=== PATIENT | female | born 1940 | race Caucasian/White ===

== ENCOUNTER 2017-08-02 17:38 | Emergency (ER) | payer MEDICARE ==
[2017-08-02 20:53] LABS: INR 1.1 (0.85-1.17); PROTIME 13.8 SECONDS (11.6-15.0)
[2017-08-02 21:03] LABS: CREATINE KINASE 84 UL (21-215); PRO BNP 1574 pg/mL (0-450); TROPONIN-I < 0.017 ng/mL (0.000-0.060)
[2017-08-02 21:09] LABS: D-DIMER-QUANTITATIVE 6.56 ug/mLFEU (0.20-0.54)
[2017-08-02 22:05] LABS: BASOPHILS 0.2 % (0-2); HEMATOCRIT 29.4 % (36.0-48.0); IMMATURE GRANULOCYTES 0.5 % (0-5); LYMPHOCYTES 13.9 % (15-50); MCH 29.8 pg (26.0-34.0); MCHC 30.6 g/dL (31.0-37.0); MCV 97.4 fL (80.0-100.0); MEAN PLATELET VOLUME 11.7 fL (7.4-10.4); MONOCYTES 6.4 % (2-11); PLATELET COUNT 269 10x3/uL (130-400); RBC 3.02 10x6/uL (4.00-5.40); RDW 16.7 % (11.5-14.5); WBC 8.4 10x3/uL (4.8-10.8)
[2017-08-02 22:24] LABS: ALBUMIN 3.3 g/dL (3.4-5.0); ANION GAP 11.5 mmol/L (8-16); BILIRUBIN - TOTAL 1.03 mg/dL (0.2-1.3); CALCIUM 8.9 mg/dL (8.5-10.1); CREATININE - SERUM 1.5 mg/dL (0.6-1.3); POTASSIUM - SERUM 4.5 mmol/L (3.5-5.1); PROTEIN - SERUM 6.4 g/dL (6.4-8.2)
== END 2017-08-03 00:56 | disposition home or self-care (01) ==
LOC: D.ER 17:38
PROVIDERS: Emergency Medicine; Nurse Practitioner Family
DX: I82.431 Acute embolism and thrombosis of right popliteal vein (principal); Z98.890 Other specified postprocedural states; I10 Essential (primary) hypertension